=== PATIENT | female | born 1995 | race Hispanic/Latino ===

== ENCOUNTER 2016-08-26 21:22 | Emergency (ER) | payer SELFPAY ==
[~2016-08-26] VITALS: Ht 147.3 cm; Wt 59.1 kg
[~2016-08-26 21:22] MED LIST: IBUP-1827 PO
[2016-08-26 21:33] VITALS: BP 113/76; PULSE 62; RESP 18; O2SAT 100
--- NOTE | 2016-08-26 21:46 | ED.REPORT ---
HPI-Abd Pain F Under 38 Date of Service Aug 26, 2016 ED Provider: Atif Munguia MD The patient is a 20 year old female with a history of ovarian cysts who presents to the ED with upper and right-sided abdominal pain onset 1600 this afternoon. The patient denies nausea, vomiting, fever, dysuria, diarrhea, constipation, or other symptoms. She has had similar pain in the past while which resolved on its own. The patient speaks Slovak and a remote cyber security analyst was used. Nursing Notes Stated Complaint: PAIN IN STOMACH Chief Complaint: Female Abdominal Pain Nursing Notes Reviewed: Yes Allergies: Coded Allergies: No Known Allergies (Unverified , 08/26/16) Scheduled PRN Ibuprofen (Ibuprofen) 600 Mg Tablet 600 MG PO Q6H PRN PRN For Pain General Time Seen by MD: 21:46 Chief Complaint Abdominal pain Hx Obtained From: Patient Arrived By: Walk-in Sudden in Onset?: No Onset Occurred: 5 - 8 hours ago Symptom Duration: Since onset Location: : Abdomen upper (And right-sided) Quality: Painful Severity: Current: Moderate Severity: Maximum: Moderate Pertinent Negative: Relieved by nothing Recent Healthcare: No recent doctor visit Similar Sx Previous: No Past Medical History Past Medical History Ovarian cyst Past Surgical History None Family History No gallstones Smoking History Never Smoker Social History Alcohol Use: Denies alcohol use Drug Use: Denies drug use Other Social History: Good social support, Local resident Ambulatory Status Independent Review of Systems Constitutional: Denies: Fever Respiratory: Denies: Non-productive cough, Shortness of breath GI: Reports: Abdominal pain (Upper and Right-Sided), Denies: Constipation, Diarrhea, Nausea, Vomiting Female: Denies: Dysuria Complete sys rev & neg: except as marked. Physical Exam Initial Vital Signs Vital Signs (First) Date Time Temp Pulse Resp B/P Pulse Ox O2 Delivery O2 Flow Rate FiO2 08/26/16 21:33 36.8 62 18 113/76 100 Room Air Initial VS: Reviewed, Vital signs normal Head / Eyes: Atraumatic, Normocephalic ENT: Conjunctiva normal, No scleral icterus Neck: Supple, Full range of motion Neurologic: Alert, Oriented, Nonfocal Psychiatric: Mood/affect normal, Behavior normal, Normal thought content General/Constitutional: Awake, Alert, Well hydrated Abdomen: No distention Tenderness/Guarding/Rebound: Positive: Tender RUQ..., Tender epigastric Right-sided tenderness Back: Full range of motion Flank / Spine / Paraspinal: Positive: Flank tender R Skin: Color NL, No rash, Warm, Dry Interpretation & Diagnostics URINE TEST: Negative URINE DIPSTICK: Bedside Urine Specific [place] * 1.015 Bedside Urine pH * 5 Bedside Urine Leukocyte Esterase * Negative Bedside Urine Nitrite * Negative Bedside Urine Protein * Negative Bedside Urine Glucose * Normal Bedside Urine Ketones * Negative Bedside Urine Urobilinogen * Normal Bedside Urine Bilirubin * Negative Bedside Urine Occult Blood * Negative Urine to Lab * Yes Lab Results Interpretation Result Diagram: 08/26/16 2320 08/26/16 2214 Test 08/26/16 22:14 08/26/16 22:20 08/26/16 23:20 Sodium Level 136mEq/L (134-144) Potassium Level 4.7mEq/L (3.5-5.2) Chloride Level 102mEq/L (97-108) Carbon Dioxide Level 16mmol/L (18-29) Blood Urea Nitrogen 15mg/dL (6-20) Creatinine 0.52mg/dL (0.57-1.00) Estimat Glomerular Filtration Rate 211mL/min (>59) Glucose Level 91mg/dL (60-99) Calcium Level 9.6mg/dL (8.5-10.1) Magnesium Level 2.2mg/dL (1.6-2.6) Total Bilirubin 0.3mg/dL (0.0-1.2) Aspartate Amino Transf (AST/SGOT) 30U/L (0-50) Alanine Aminotransferase (ALT/SGPT) 24U/L (0-32) Alkaline Phosphatase 140U/L (25-150) Total Protein 7.8g/dL (6.4-8.4) Albumin 4.5g/dL (3.4-5.0) Lipase 37U/L (13-60) Hold Chow Top Tube Received (Received) Urine Color Straw (YELLOW) Urine Appearance Clear (CLEAR,HAZY) Urine pH 6.5 (5.0-8.0) Urine Specific [place] 1.010 (1.003-1.035) Urine Protein Negativemg/dL (NEG,TRACE) Urine Glucose (UA) Negativemg/dL (NEGATIVE) Urine Ketones Negativemg/dL (NEGATIVE) Urine Occult Blood Trace (NEGATIVE) Urine Nitrite Negative (NEGATIVE) Urine Bilirubin Negative (NEGATIVE) Urine Urobilinogen Normalmg/dL (NORMAL) Urine Leukocyte Esterase Trace (NEGATIVE) Urine RBC 0-2/hpf (0-2) Urine WBC 0-5/hpf (0-5) Urine Epithelial Cells Few/hpf (NONE-MOD) Urine Crystals None seen (NONE SEEN) Urine Bacteria Few/hpf (NONE-FEW) Urine Hyaline Casts None/lpf (NONE) Urine Granular Casts None seen (NONE SEEN) Urine Waxy Casts None seen (NONE SEEN) Urine Red Blood Cell Casts None seen (NONE SEEN) Urine White Blood Cell Casts None seen (NONE SEEN) Urine Mucus None seen (None Seen) Urine Trichomonas None seen (NONE SEEN) Urine Yeast None (NONE SEEN) Urinalysis Comment None Urine Culture Reflexed Indicated White Blood Count 11.9th/mm3 (3.8-10.1) Red Blood Count 4.75mil/mm3 (3.90-5.20) Hemoglobin 14.0g/dL (12.0-15.6) Hematocrit 42.3% (35.0-46.0) Mean Corpuscular Volume 89.1fL (81-100) Mean Corpuscular Hemoglobin 29.5pg (27.0-35.0) Mean Corpuscular Hemoglobin Concent 33.1% (32.0-37.0) Red Cell Distribution Width 12.6% (12.3-15.4) Platelet Count 189bil/L (150-400) Neutrophils (%) (Auto) 67.1% (40-74) Lymphocytes (%) (Auto) 23.4% (14-46) Monocytes (%) (Auto) 6.9% (4-12) Eosinophils (%) (Auto) 2.0% (0-5) Basophils (%) (Auto) 0.4% (0-3) Lab Results Interpretation: Mildly elevated white blood count Re-Eval/Medical Decision Med Decision/Clinical Course 20-year-old female with right upper quadrant abdominal pain but no laboratory abnormalities. Pain diminished prior to discharge. She will follow up at the clinic for reevaluation and outpatient ultrasound. Avoid large meals and fatty food. Return here as needed. Source of Hx: Old records Re-Evaluation/Progress : Time of Eval: 00:47 Patient Status: Condition improved Re-Evaluation/Progress Note: Discussed with patient lab results, diagnosis, and plan for discharge. Follow-up and return to the ER instructions given. Patient agrees with plan for care and all questions were addressed. Counseled Regarding: Diagnosis, Lab results, Need for follow-up, When/why to return to ED Discharge & Departure Primary Impression: Abdominal pain Abdominal location: right upper quadrant Qualified Code: R10.11 - Right upper quadrant pain Disposition: Home Discharge Condition All VS Reviewed: Yes Condition: Improved Patient Instructions: Acute Abdominal Pain (ED) Additional Instructions: Thank you for entrusting us with your care. Your lab results were reassuring for any serious illness. Use Tylenol or Ibuprofen as directed for pain. Call [facility] tomorrow for a follow-up appointment and ultrasound. Return to the ER with any new or worsening symptoms. [employer] TRANSLATE Christian por confiar morgan cuidado. Los resultados de morgan laboratorio fueron tranquilizadores para cualquier enfermedad grave. Use Tylenol o Ibuprofen segn lo indicado para el dolor. Llamar a la [facility] maana para julissa chandana de seguimiento y ultrasonido. Vuelva al ER con cualquier nuevo o empeoramiento de los sntomas. Referrals: NOPCP (PCP) [facility] Aryan Attestation Portions of this note were transcribed by Zarina Herrera. I, Dr. Munguia, personally performed the history, physical exam, and medical decision-making; I reviewed and confirmed the accuracy of the information in the transcribed note. Signed by: Aryan Elmore, 08/27/2016, 02:25 copies to: [facility] Atif Munguia MD Aug 26, 2016 21:46 ZARINA HERRERA Aug 26, 2016 21:54
[2016-08-26] MEDS ORDERED: 0.9% Sodium Chloride 1,000 ML IV ONE (21:55)
[2016-08-26 22:37] LABS: APPEARANCE,URINE CLEAR (CLEAR,HAZY); COLOR,URINE STRAW (YELLOW); OCCULT BLOOD,URINE TRACE (NEGATIVE); PH,URINE 6.5 (5.0-8.0); UROBILINOGEN,URINE NORMAL (NORMAL)
[2016-08-26 23:15] LABS: Magnesium 2.2 mg/dL (1.6-2.6)
[2016-08-26] MEDS ORDERED: HYDROmorphone 0.5 mg/0.5 mL iSecure Syringe IVPUSH PRN (23:25)
[2016-08-26 23:43] LABS: Mean Corpuscular Hemoglobin 29.5 pg (27.0-35.0); Mean Corpuscular Volume 89.1 fL (81-100); Platelet Count 189 bil/L (150-400)
[2016-08-26 23:44] LABS: BASOPHILS % (AUTO) 0.4 % (0-3); MONOCYTES % (AUTO) 6.9 % (4-12); NEUTROPHILS % (AUTO) 67.1 % (40-74)
[2016-08-27 01:15] VITALS: BP 96/56; PULSE 69; RESP 16; O2SAT 100
== END 2016-08-27 01:16 | disposition home or self-care (01) ==
LOC: SED 21:22
DX: R10.11 Right upper quadrant pain (principal)
CPT/HCPCS: 36415; 80053; 81000; 81025; 83690; 83735; 85025; 87086; 87088; 96374; 99284; J1170; J7030